=== PATIENT | male | born 1940 | race Two or more races ===

== ENCOUNTER 2018-01-10 10:28 | Outpatient (CLI) | payer OTHER ==
[~2018-01-10 10:28] MED LIST: CARDIZEM CD120 MG PO; COUMADIN5 MG PO; ENABLEX7.5 MG PO; GLIMEPIRIDE4 MG PO; LANOXIN62.5 MCG PO; LASIX20 MG PO; METOCLOPRAMIDE10 MG PO; POTASSIUM CL 225 MEQ PO
== END 2018-01-10 10:32 | disposition home or self-care (01) ==
LOC: LAB 10:28
DX: E11.9 Type 2 diabetes mellitus without complications (principal); I10 Essential (primary) hypertension; I48.91 Unspecified atrial fibrillation; I48.92 Unspecified atrial flutter

== ENCOUNTER 2018-01-11 10:27 | Day surgery (SDC) | payer OTHER | END 2018-01-11 16:40 | disposition home or self-care (01) | LOC: CIR.AMB 10:27 | DX: N47.1 Phimosis (principal) ==